=== PATIENT | female | born 1955 | race Caucasian/White ===

== ENCOUNTER 2016-11-19 15:57 | Emergency (ER) | payer OTHER ==
[2016-11-19 16:13] VITALS: BP 165/95; PULSE 107; TEMP 98.9; BMI 29.7
--- NOTE | 2016-11-19 16:18 | PDOC ---
[id number] No Limitations - History of Present Illness Initial Comments: 11/19/16 17:15 The patient is a 60 year old female with a significant past medical history of sinus infection who presents to the emergency department today complaining of a productive cough, wheezing, and abdominal pain for 5 days. The patient states that her cough is producing milky-green sputum. The patient states that she took excedrin and robitussin with minimal relief. The patient states that she is still experiencing congestion from a recent sinus infection and that symptoms are accompanied by pain and headaches. The patient denies nausea, vomiting, and diarrhea. The patient denies chest pain and shortness of breath. She states that she is going to see an ENT on sunday. <Chase Eastman - Last Filed: 11/19/16 20:19> - History of Present Illness Initial Comments: 11/23/16 09:37 Patient's physical exam reveals that she is afebrile, with a normal oxygen saturation Lungs are clear to P&A. There is no wheezing. There is no tachypnea or dyspnea or splinting on deep inspiration The patient is recently completed a course of antibiotics. Her cough is most likely post inflammatory. She does not appear to have an acute infection. She is due for follow-up of her sinusitis with her ENT physician in several days. Symptomatic treatment until then for the cough, and further recommendation at that time regarding continue to alternate antibiotic therapy. Patient fully ambulatory and in no distress upon discharge to follow-up as directed <Julius Nuñez - Last Filed: 11/23/16 09:39> - General Chief Complaint: Cold Symptoms Stated Complaint: COUGH Time Seen by Provider: 11/19/16 16:02 Past History <Chase Eastman - Last Filed: 11/19/16 20:19> - Past Medical History Psychiatric Problems: Yes (DEPRESSION) - Psycho/Social/Smoking Cessation Hx Anxiety: No Suicidal Ideation: No Smoking History: Former smoker Have you smoked in the past 12 months: No Number of Cigarettes Smoked Daily: 10 If you are a former smoker, when did you quit?: 2016 Information on smoking cessation initiated: No Hx Alcohol Use: No Drug/Substance Use Hx: No Substance Use Type: None <Julius Nuñez - Last Filed: 11/23/16 09:39> - Past Medical History Allergies/Adverse Reactions: Allergies Allergy/AdvReac Type Severity Reaction Status Date / Time No Known Allergies Allergy Verified 11/19/16 16:00 Home Medications: Ambulatory Orders Bupropion HCl [Wellbutrin -] 75 mg PO TID 11/19/16 Citalopram Hydrobromide [Citalopram HBr] 30 mg PO DAILY 11/19/16 Review of Systems - Review of Systems Able to Perform ROS?: Yes Comments:: 11/19/16 17:15 CONSTITUTIONAL: Absent: fever, chills, diaphoresis, generalized weakness, malaise, loss of appetite HEENT: Present: nasal congestion. Absent: rhinorrhea, throat pain, throat swelling, difficulty swallowing, mouth swelling, ear pain, eye pain, visual Changes CARDIOVASCULAR: Absent: chest pain, syncope, palpitations, irregular heart rate, lightheadedness , peripheral edema RESPIRATORY: Present: wheezing, productive cough (green sputum) Absent: shortness of breath, dyspnea with exertion, orthopnea, stridor, hemoptysis GASTROINTESTINAL: Present: abdominal pain Absent: nausea, vomiting, diarrhea, constipation, melena, hematochezia GENITOURINARY: Absent: dysuria, frequency, urgency, hesitancy, hematuria, flank pain, genital pain MUSCULOSKELETAL: Absent: myalgia, arthralgia, joint swelling SKIN: Absent: rash, itching, pallor HEMATOLOGIC/IMMUNOLOGIC: Absent: easy bleeding, easy bruising, lymphadenopathy, frequent infections ENDOCRINE: Absent: unexplained weight gain, unexplained weight loss, heat intolerance, cold intolerance NEUROLOGIC: Absent: headache, focal weakness or paresthesias, dizziness, unsteady gait, seizure, mental status changes, bladder or bowel incontinence PSYCHIATRIC: Absent: anxiety, depression, suicidal or homicidal ideation, hallucinations. <Chase Eastman - Last Filed: 11/19/16 20:19> *Physical Exam - Vital Signs Last Vital Signs Temp Pulse Resp BP Pulse Ox 98.9 F 107 H 16 165/95 98 11/19/16 16:02 11/19/16 16:02 11/19/16 16:02 11/19/16 16:02 11/19/16 16:02 - Physical Exam Comments: 11/19/16 17:57 GENERAL: Well developed, well nourished. Awake and alert. In no acute distress. HEENT: Mild head congestion, atraumatic. PERRLA, EOMI. No conjunctival pallor. Sclera are non-icteric. Moist mucous membranes. Oropharynx is clear. NECK: Mild ejection of the throat with exudates or nodes. Supple. Full ROM. No JVD. Carotid pulses 2+ and symmetric. CARDIOVASCULAR: Regular rate and rhythm. No murmurs, rubs, or gallops. Distal pulses are 2+ and symmetric. PULMONARY: No evidence of respiratory distress. Lungs clear to auscultation bilaterally. No wheezing, rales or rhonchi. ABDOMINAL: Soft. Non-tender. Non-distended. No rebound or guarding. No organomegaly. Normoactive bowel sounds. MUSCULOSKELETAL Normal range of motion at all joints. No bony deformities or tenderness. No CVA tenderness. EXTREMITIES: No cyanosis. No clubbing. No edema. No calf tenderness. SKIN: Warm and dry. Normal capillary refill. No rashes. No jaundice. NEUROLOGICAL: Alert, awake, appropriate. Cranial nerves 2-12 intact. No deficits to light touch and temperature in face, upper extremities and lower extremities. No motor deficits in the in face, upper extremities and lower extremities. Normoreflexic in the upper and lower extremities. Normal speech. PSYCHIATRIC: Cooperative. Good eye contact. Appropriate mood and affect. <Chase Eastman - Last Filed: 11/19/16 20:19> - Vital Signs Last Vital Signs Temp Pulse Resp BP Pulse Ox 98.9 F 107 H 16 165/95 98 11/19/16 16:02 11/19/16 16:02 11/19/16 16:02 11/19/16 16:02 11/19/16 16:02 <Julius Nuñez - Last Filed: 11/23/16 09:39> *DC/Admit/Observation/Transfer - Attestations Scribe Attestion: 11/19/16 17:15 Documentation prepared by Chase Eastman, acting as medical billing supervisor for Julius Nuñez MD. <Chase Eastman - Last Filed: 11/19/16 20:19> - Discharge Dispostion Admit: No <Julius Nuñez - Last Filed: 11/23/16 09:39> Diagnosis at time of Disposition: Viral URI with cough - Discharge Dispostion Disposition: HOME Condition at time of disposition: Stable - Patient Instructions Printed Discharge Instructions: DI for Viral Upper Respiratory Infection -- Adult
== END 2016-11-19 16:30 | disposition home or self-care (01) ==
LOC: FER 15:57
DX: J06.9 Acute upper respiratory infection, unspecified (principal); R05 Cough; F32.9 Major depressive disorder, single episode, unspecified; Z87.891 Personal history of nicotine dependence
CPT/HCPCS: 99281-25

== ENCOUNTER 2017-07-20 22:05 | Emergency (ER) | payer OTHER ==
[2017-07-20 22:15] VITALS: TEMP 98.7; BMI 24.4
--- NOTE | 2017-07-20 22:18 | PDOC ---
History of Present Illness - General Chief Complaint: Pain Stated Complaint: RIB PAIN Time Seen by Provider: 07/20/17 22:18 - History of Present Illness Initial Comments: 07/20/17 22:46 This 61-year-old woman with a history of back pain and sinusitis presents with chest wall pain after fall last week. Patient states that on Sunday, July 13 , she tripped at home falling forward and striking bilateral costal margins against bookcase. There was no head/neck injury and she denies loss of consciousness. Since then, she has had pain with movement, deep breathing, coughing and laughing. She has been taking Excedrin and Flexeril for pain relief with some effectiveness but still has significant discomfort. She denies cough/shortness of breath/fever. No other injury sustained Past History - Past Medical History Allergies/Adverse Reactions: Allergies Allergy/AdvReac Type Severity Reaction Status Date / Time No Known Allergies Allergy Verified 11/19/16 16:00 Home Medications: Ambulatory Orders Bupropion HCl [Wellbutrin -] 75 mg PO TID 11/19/16 Citalopram Hydrobromide [Citalopram HBr] 30 mg PO DAILY 11/19/16 Cyclobenzaprine HCl [Flexeril -] 10 mg PO TID 07/20/17 Diclofenac Sodium 75 mg PO BID PRN #20 tablet. 07/20/17 Tramadol HCl [Ultram] 50 mg PO BID PRN #12 tablet MDD 2 tabs 07/20/17 Psychiatric Problems: Yes (DEPRESSION) Other medical history: CHRONIC BACK PAIN - Psycho/Social/Smoking Cessation Hx Anxiety: No Suicidal Ideation: No Smoking History: Current every day smoker Have you smoked in the past 12 months: Yes Number of Cigarettes Smoked Daily: 4 If you are a former smoker, when did you quit?: 2016 Information on smoking cessation initiated: Yes 'Breaking Loose' booklet given: 07/20/17 Hx Alcohol Use: No Drug/Substance Use Hx: No Substance Use Type: None Review of Systems - Review of Systems Able to Perform ROS?: Yes Comments:: 12 point review of systems is negative except for what is noted in the history of present illness *Physical Exam - Vital Signs Last Vital Signs Temp Pulse Resp BP Pulse Ox 98.7 F 116 H 18 179/106 99 07/20/17 22:11 07/20/17 22:11 07/20/17 22:11 07/20/17 22:11 07/20/17 22:11 - Physical Exam Comments: GENERAL: HEAD: Normal with no signs of trauma. EYES: PERRLA, EOMI, sclera anicteric, conjunctiva clear. ENT: Ears normal, nares patent, oropharynx clear without exudates. Dry mucous membranes. NECK: Normal range of motion, supple without lymphadenopathy, JVD, or masses. LUNGS: Breath sounds equal, clear to auscultation bilaterally. No wheezes, and no crackles. CHEST WALL: Moderate tenderness to palpation left rib 05/26/9 at anterior axillary line No crepitus/step offs noted on palpation HEART:Regular rate and rhythm, normal S1 and S2 without murmur, rub or gallop. ABDOMEN:.normal bowel sounds No guarding,tenderness or rebound.No masses No distention. EXTREMITIES: Normal range of motion, no edema. No clubbing or cyanosis. No erythema, or tenderness. NEUROLOGICAL: Cranial nerves II through XII grossly intact. Normal speech. No focal neurological deficits. MUSCULOSKELETAL: Back non-tender to palpation, no CVA tenderness SKIN: Warm, Dry, normal turgor, no rashes or lesions noted. Medical Decision Making - Medical Decision Making Left rib series performed to evaluate for fracture or other acute pathology. X- ray is preliminarily interpreted by me. X-ray appears to show a nondisplaced fracture of the lateral aspect of the ninth rib. There is also a possible fracture in the 10th rib. PA view of the chest reveals no evidence of effusion/ infiltrate or other abnormality. Results discussed with the patient. Toradol 60 mg IM will be given for analgesia now. Patient states that she has no history of peptic ulcer disease/gastritis/kidney disease. Patient will be given a prescription for diclofenac 75 mg up to twice a day to be taken as needed for moderate pain. Also, because patient states that she is particularly uncomfortable at night, tramadol 50 mg up to twice a day will be prescribed for severe pain. Patient is advised to return to the emergency room if she has shortness of breath, fever, cough. Patient currently does not have it general medical doctor (moved to this area 2 years ago and has yet to choose a general doctor). She states that she has "[employer]" insurance and will check listing for doctors in the area. The patient should follow-up with a general medical doctor within the next 2 weeks *DC/Admit/Observation/Transfer Diagnosis at time of Disposition: Left rib fracture Qualifiers: Encounter type: initial encounter Rib fracture type: single rib Fracture type: closed Qualified Code(s): S22.32XA - Fracture of one rib, left side, initial encounter for closed fracture - Discharge Dispostion Disposition: HOME Condition at time of disposition: Stable - Prescriptions Prescriptions: Diclofenac Sodium 75 mg PO BID PRN #20 tablet. PRN Reason: Moderate Pain Tramadol HCl [Ultram] 50 mg PO BID PRN #12 tablet MDD 2 tabs PRN Reason: Severe Pain - Patient Instructions Printed Discharge Instructions: Rib Fracture Additional Instructions: Continue Excedrin as needed for mild pain Diclofenac 75 mg twice a day with food as needed for moderate pain Tramadol 50 mg up to twice a day for severe pain continue activity as tolerated Return to ER if you have severe, persistent pain, shortness of breath, fever or cough Follow-up with a general medical doctor within the next 2 weeks as discussed
[2017-07-20 22:24] VITALS: BP 140/85
[2017-07-20] MEDS ORDERED: KETOROLAC TROMETHAMINE 60 MG/2 ML VIAL IM ONE (23:01)
[2017-07-20] MEDS ORDERED: KETOROLAC TROMETHAMINE 60 MG/2 ML VIAL ONE (23:02)
[2017-07-20 23:06] VITALS: PULSE 108
== END 2017-07-20 23:11 | disposition home or self-care (01) ==
LOC: FER 22:05
PROC: 3E0233Z Introduction of Anti-inflammatory into Muscle, Percutaneous Approach (ICD-10-PCS; principal; 2017-07-20)
DX: S22.32XA Fracture of one rib, left side, initial encounter for closed fracture (principal); W18.39XA Other fall on same level, initial encounter; Y93.89 Activity, other specified; Y92.9 Unspecified place or not applicable; F17.210 Nicotine dependence, cigarettes, uncomplicated; F32.9 Major depressive disorder, single episode, unspecified; G89.29 Other chronic pain
CPT/HCPCS: 71101-TC; 96372; 99281-25

== ENCOUNTER 2017-11-15 18:12 | Emergency (ER) | payer OTHER ==
[2017-11-15 18:28] VITALS: BP 179/100; PULSE 90; TEMP 97.6; BMI 26.2
--- NOTE | 2017-11-15 19:34 | PDOC ---
History of Present Illness - General History Source: Patient Exam Limitations: No Limitations - History of Present Illness Initial Comments: 11/15/17 19:34 The patient is a 61 year old female, with a significant past medical history of depression, who presents to the emergency department s/p sustaining a laceration to the left thumb earlier this afternoon. Patient reports she was using a fabric cutter gas, when she accidentally cut her thumb. Patient reports associated bleeding and pain at the site of the injury. She denies any associated erythema, swelling, ecchymosis, fever, chills, headache, dizziness, or lightheadedness. She denies any other trauma. She denies any recent travel or sick contacts. PAST MEDICAL HISTORY: Depression PAST SURGICAL HISTORY: no significant history FAMILY HISTORY: no pertinent history SOCIAL HISTORY: Pt lives with family. MEDICATIONS: reviewed ALLERGIES: As per nursing notes General: No fevers or chills, no weakness, no weight loss HEENT: No change in vision. No sore throat,. No ear pain CardioVascular: No chest pain or shortness of breath Respiratory:No cough, or wheezing. Gastrointestinal: no nausea, vomiting, diarrhea or constipation, No rectal bleeding Genitourinary: No dysuria, hematuria, or frequency Musculoskeletal: No joint or muscle pain or swelling Neurologic: No headache, vertigo, dizziness or loss of consciousness Psychiatric: nor depression Skin: Yes laceration to left thumb with associated bleeding and pain. No rashes or easy bruising Endocrine: no increased thirst or abnormal weight change Allergic: no skin or latex allergy All other systems reviewed and normal GENERAL: The patient is awake, alert, and fully oriented, in no acute distress. HEAD: Normal with no signs of trauma. EYES: Pupils equal, round and reactive to light, extraocular movements intact, sclera anicteric, conjunctiva clear. EXTREMITIES: Normal range of motion, no edema. NEUROLOGICAL: Normal speech, normal gait. PSYCH: Normal mood, normal affect. SKIN: Superficial laceration over the medial and palmar aspect of the left thumb approximately 1 cm in length. No active bleeding, no ligamentous injury, distal sensation intact, and full ROM at left thumb. No other signs of trauma. Warm, Dry, normal turgor, no rashes noted. 11/15/17 19:34 <Anny Rivera - Last Filed: 11/15/17 19:34> - General History Source: Patient Exam Limitations: No Limitations - History of Present Illness Initial Comments: A portion of this note was documented by scribe services under my direction. I have reviewed the details of the note, within reason, and agree with the documentation. The case summary and management plan written by me. Procedure note: Laceration repair with Dermabond Laceration was cleaned with saline and examined in a bloodless field. There was no tendon injury. Laceration was closed with Dermabond patient tolerated well. Assessment and plan: This is a 61-year-old female comes in status post cutting her thumb with a cutter gas when cutting fabric. Patient laceration was superficial and there was no active bleeding at the time of my evaluation. Patient tetanus needed to be updated and was given tetanus in the emergency room. Otherwise laceration was closed with Dermabond and patient was discharged with Dermabond instructions. <Yadiel Fields I - Last Filed: 11/15/17 19:44> - General Chief Complaint: Injury Stated Complaint: LEFT THUMB LACERATION Time Seen by Provider: 11/15/17 19:17 Past History <Anny Rivera - Last Filed: 11/15/17 19:34> - Past Medical History COPD: No Psychiatric Problems: Yes (DEPRESSION) - Suicide/Smoking/Psychosocial Hx Smoking History: Former smoker Have you smoked in the past 12 months: No Number of Cigarettes Smoked Daily: 0 If you are a former smoker, when did you quit?: 2016 Information on smoking cessation initiated: No 'Breaking Loose' booklet given: 07/20/17 Hx Alcohol Use: No Drug/Substance Use Hx: No Substance Use Type: None <Yadiel Fields I - Last Filed: 11/15/17 19:44> - Past Medical History Allergies/Adverse Reactions: Allergies Allergy/AdvReac Type Severity Reaction Status Date / Time No Known Allergies Allergy Verified 11/19/16 16:00 Home Medications: Ambulatory Orders Bupropion HCl [Wellbutrin -] 75 mg PO TID 11/19/16 Citalopram Hydrobromide [Citalopram HBr] 30 mg PO DAILY 11/19/16 *Physical Exam - Vital Signs Last Vital Signs Temp Pulse Resp BP Pulse Ox 97.6 F 90 15 179/100 99 11/15/17 18:13 11/15/17 18:13 11/15/17 18:13 11/15/17 18:13 11/15/17 18:13 <Anny Rivera - Last Filed: 11/15/17 19:34> - Vital Signs Last Vital Signs Temp Pulse Resp BP Pulse Ox 97.6 F 90 15 179/100 99 11/15/17 18:13 11/15/17 18:13 11/15/17 18:13 11/15/17 18:13 11/15/17 18:13 <Yadiel Fields I - Last Filed: 11/15/17 19:44> *DC/Admit/Observation/Transfer - Attestations Scribe Attestion: 11/15/17 19:34 Documentation prepared by Anny Rivera, acting as medical charge entry specialist for Yadiel Fields MD. <Anny Rivera - Last Filed: 11/15/17 19:34> - Discharge Dispostion Admit: No <Yadiel Fields I - Last Filed: 11/15/17 19:44> Diagnosis at time of Disposition: Laceration of thumb Qualifiers: Encounter type: initial encounter Damage to nail status: without damage Foreign body presence: without foreign body Laterality: left Qualified Code(s): S61.012A - Laceration without foreign body of left thumb without damage to nail , initial encounter - Discharge Dispostion Disposition: HOME Condition at time of disposition: Good - Patient Instructions Printed Discharge Instructions: DI for Laceration Repair With Dermabond Additional Instructions: Read over and follow the Dermabond instructions. He points R do not get it wet for 72 hours, and do not use any petroleum based products on the glue as it will cause it to come off early this includes antibiotic ointments lotions or creams. Return to the emergency department immediately with ANY new, persistent or worsening symptoms. Continue any medications as previously prescribed by your physician. You should follow up with your primary doctor as soon as possible regarding today's emergency department visit. . Please make sure your doctor reviews the results of your emergency evaluation. Thank you for coming to the Emergency Department today for your care. It was a pleasure to see you today. Please note that your evaluation is INCOMPLETE until you follow-up with your doctor.
[2017-11-15] MEDS ORDERED: DIPHTH,PERTUSS(ACELL),TET 0.5 ML DISP.SYRIN IM ONE (19:40)
== END 2017-11-15 20:00 | disposition home or self-care (01) ==
LOC: FER 18:12
PROC: 3E0234Z Introduction of Serum, Toxoid and Vaccine into Muscle, Percutaneous Approach (ICD-10-PCS; principal; 2017-11-15)
DX: S61.012A Laceration without foreign body of left thumb without damage to nail, initial encounter (principal); W45.8XXA Other foreign body or object entering through skin, initial encounter; Y93.89 Activity, other specified; Y92.9 Unspecified place or not applicable; F32.9 Major depressive disorder, single episode, unspecified; Z87.891 Personal history of nicotine dependence
CPT/HCPCS: 90715; 99282-25